=== PATIENT | male | born 1955 | race Hispanic/Latino ===

== ENCOUNTER 2019-04-14 19:52 | Emergency (ER) | payer MEDICARE ==
[2019-04-14 20:02] VITALS: BP 136/81
--- NOTE | 2019-04-14 20:27 | Emergency Department Report ---
Blank Doc - Documentation Documentation: 63 y/o male with severe atraumatic pain to left index finger with redness and discharge. his initial assessment/diagnostic orders/clinical plan/treatment(s) is/are subject to change based on patient's health status, clinical progression and re- assessment by fellow clinical providers in the ED. Further treatment and workup at subsequent clinical providers discretion. Patient/guardians urged not to elope from the ED as their condition may be serious if not clinically assessed and managed. Initial orders include: triggers kanavals signs xray
[2019-04-14] MEDS ORDERED: PERCOCET 5/325 PO STA (20:29)
[2019-04-14] MEDS ORDERED: NORCO 10/325 ONE (20:30)
[2019-04-14] MEDS ORDERED: NORCO 10/325 PO ONE (20:32)
--- NOTE | 2019-04-14 21:17 | Emergency Department Report ---
Upper Extremity - HPI Chief Complaint: Extremity Problem,Nontraumatic Stated Complaint: L INDEX FINGER PAIN/BLEEDING Time Seen by Provider: 04/14/19 20:26 Upper Extremity: Left Index Finger Occurred When: 2 Days Mechanism: Unsure Severity: severe Symptoms: Yes Pain with Movement, Yes Limited Range of Movement, Yes Numbness, Yes Swelling, Yes Bruising/Ecchymosis, No Deformity, No Weakness, No Laceration or Abrasion Other History: This is a 63-year-old male who presents to the emergency room with left index finger swelling, pain, and bleeding for 2 days. Patient states he isn't sure if something bit his finger or is he caught something from his dog. He reports pain currently is 10 out of 10 on pain scale and worse with movement. States bleeding and bruising started today to distal lateral finger. He reports some numbness and tingling sensation as well. ED Review of Systems ROS: Stated complaint: L INDEX FINGER PAIN/BLEEDING Other details as noted in HPI Constitutional: denies: chills, fever Respiratory: denies: cough, shortness of breath, wheezing Cardiovascular: denies: chest pain, palpitations Gastrointestinal: denies: abdominal pain, nausea, diarrhea Musculoskeletal: joint swelling (left index finger), arthralgia (left distal index finger). denies: back pain Skin: denies: rash, lesions Neurological: denies: headache, weakness, paresthesias Psychiatric: denies: anxiety, depression ED Past Medical Hx - Past Medical History Previous Medical History?: Yes Hx Hypertension: No Hx Heart Attack/AMI: No Hx Liver Disease: No Hx Renal Disease: No Hx Seizures: No Hx Asthma: No Hx COPD: No Hx Tuberculosis: Yes ([place] , NEG CXR 2011) - Surgical History Past Surgical History?: No - Social History Smoking Status: Current Every Day Smoker Substance Use Type: None - Medications Home Medications: Home Medications Medication Instructions Recorded Confirmed Last Taken Type HYDROcodone/APAP 5-325 [[place] 1 each PO Q6HR PRN #10 tablet 09/03/14 09/04/14 09/03/14 Rx 5/325] Ibuprofen [Motrin 800 MG tab] 800 mg PO Q8HR PRN #20 tablet 04/14/19 Unknown Rx Sulfamethoxazole/Trimethoprim 1 each PO BID #20 tablet 04/14/19 Unknown Rx [Bactrim DS TAB] Upper Extremity Exam - Exam General: Vital signs noted. No distress. Alert and acting appropriately. Head and Torso: No HEENT Abnormality, No Neck Tenderness, No Chest/Lungs Abnormality, No Abdominal Tenderness, No Back Tenderness Shoulder Exam: Yes Normal Range of Motion in Shoulder, No Shoulder Tenderness, No Clavicle Tenderness, No Shoulder Deformity, No AC Joint Tenderness Arm Exam: No Arm/Humerus Tenderness, No Arm Deformity Elbow: No Elbow Tenderness, No Normal Range of Motion in Elbow, No Elbow Deformity Forearm: No Forearm Tenderness, No Forearm Deformity, No Pain with Pronation, No Pain with Supination Wrist: Yes Normal ROM in Wrist, No Wrist Tenderness, No Wrist Deformity, No Snuffbox Tenderness, No Pain with Axial Thumb Compression Hand: Yes Digit Tenderness (2nd distal lateral phalanx, decreased range of motion secondary pain, swelling, and erythema), Yes Normal ROM in Digit(s), No Hand Tenderness, No Hand Deformity, No Digit(s) Deformity, No Tendon Dysfunction CMS Exam: Yes Normal Distal Pulses, Yes Normal Capillary Refill, Yes Normal Distal Sensation, No Broken Skin ED Course Vital Signs 04/14/19 20:01 Temperature 98.1 F Pulse Rate 77 Respiratory 20 Rate Blood Pressure 136/81 O2 Sat by Pulse 94 Oximetry ED Medical Decision Making - Radiology Data Radiology results: report reviewed LEFT FINGER(S) 3 VIEW(S) INDICATION / CLINICAL INFORMATION: pain and swelling to left index COMPARISON: None available. FINDINGS: BONES / JOINT(S): No acute fracture or subluxation. 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 SOFT TISSUES: Moderate soft tissue swelling of the index finger. No radiopaque foreign body. ADDITIONAL FINDINGS: None. - Medical Decision Making Patient was examined by me. Patient is nontoxic appearing and stable. Vitals are normal. Obtained x-ray of left fingers. Moderate soft tissue swelling of the index finger. No radiopaque foreign body. Given analgesics and rocephin while in the ER. Physical findings susceptible of cellulitis of left second finger. Start Bactrim and ibuprofen. Patient informed of results. Instructed to take Tylenol or ibuprofen for pain. Follow up with PCP or return to the ER with worsening symptoms. Patient discharged home in stable condition. Critical care attestation.: If time is entered above; I have spent that time in minutes in the direct care of this critically ill patient, excluding procedure time. ED Disposition Clinical Impression: Cellulitis of finger, left Disposition: DC-01 TO HOME OR SELFCARE Is pt being admited?: No Condition: Stable Instructions: Cellulitis (ED) Additional Instructions: Complete full course of antibiotics as instructed. Follow up with the primary care doctor from the referral list below. I have provided a list of orthopedic surgeons and primary care provider's PUD or follow up with. Return to the emergency room if worsening symptoms. Prescriptions: Sulfamethoxazole/Trimethoprim [Bactrim DS TAB] 1 each PO BID #20 tablet Ibuprofen [Motrin 800 MG tab] 800 mg PO Q8HR PRN #20 tablet PRN Reason: Pain , Severe (7-10) Referrals: [facility] [Outside] - 3-5 Days [facility] [Outside] - 3-5 Days [facility] [Outside] - 3-5 Days KIM COLLINS MD [Staff Physician] - 3-5 Days Time of Disposition: 22:13
--- NOTE | 2019-04-14 21:29 | XRay Report ---
LEFT FINGER(S) 3 VIEW(S) INDICATION / CLINICAL INFORMATION: pain and swelling to left index COMPARISON: None available. FINDINGS: BONES / JOINT(S): No acute fracture or subluxation. Moderate degenerative arthrosis of the thumb inte rphalangeal joint. SOFT TISSUES: Moderate soft tissue swelling of the index finger. No radiopaque foreign body. ADDITIONAL FINDINGS: None. Signer Name: Shabana Hunter MD Signed: 04/14/2019 9:25 PM Workstation Name: [id number]
[2019-04-14] MEDS ORDERED: ROCEPHIN/NS 1 GM/50 ML 1 GM/50 ML BAG IV ONE (21:55)
== END 2019-04-14 22:31 | disposition home or self-care (01) ==
LOC: ED 19:52
DX: L03.012 Cellulitis of left finger (principal); F17.200 Nicotine dependence, unspecified, uncomplicated
CPT/HCPCS: 73140; 96374; 99283; J0696